=== PATIENT | female | born 1975 | race African-American/Black ===

== ENCOUNTER 2023-03-24 10:15 | Emergency (ER) | payer OTHER ==
[2023-03-24 10:27] VITALS: BMI 33.4
[2023-03-24] MEDS ORDERED: ACETAMINOPHEN 500 MG TABLET (FP) PO ONE (11:00)
[2023-03-24] MEDS ORDERED: ACETAMINOPHEN 500 MG TABLET (FP) ONE (11:29)
[2023-03-24 11:36] LABS: EOS % 1.6 % (0-4.5); HEMATOCRIT 41.4 % (32.4-45.2); HEMOGLOBIN 13.8 GM/dL (10.7-15.3); LYMPH % 24.6 % (8-40); MCH 25.1 pg (25.7-33.7); MCHC 33.4 g/dl (32.0-36.0); MEAN CELL VOLUME 75.2 fl (80-96); MEAN PLT VOLUME 6.8 fl (7.5-11.1); MONO % 7.2 % (3.8-10.2); NEUT % 65.6 % (42.8-82.8); PLATELET COUNT 226 10^3/uL (134-434); RDW 12.7 % (11.6-15.6); WHITE BLOOD COUNT 10.6 K/mm3 (4.0-10.0)
[2023-03-24 11:57] LABS: POTASSIUM 4.2 mmol/L (3.5-5.1)
[2023-03-24 12:01] LABS: ALBUMIN 3.1 g/dl (3.4-5.0); BLOOD UREA NITROGEN 10.8 mg/dL (7-18); CALCIUM 9.6 mg/dL (8.5-10.1)
[2023-03-24 12:04] LABS: CREATININE 0.7 mg/dL (0.55-1.3)
[2023-03-24 12:06] LABS: BILIRUBIN,TOTAL 0.6 mg/dL (0.2-1); TOT PROT 6.4 g/dl (6.4-8.2)
[2023-03-24] MEDS ORDERED: LIDOCAINE HCL 2% (50ML VIAL) SQ ONE (12:57)
[2023-03-24] MEDS ORDERED: LIDOCAINE HCL 2% (20ML MULTI-DOSE VIAL) ONE (13:05)
[2023-03-24 14:54] VITALS: BP 157/88; PULSE 88; RESP 19; TEMP 98.6
== END 2023-03-24 14:54 | disposition home or self-care (01) ==
LOC: JER 10:15
PROC: 0H98XZZ Drainage of Buttock Skin, External Approach (ICD-10-PCS; principal; 2023-03-24)
DX: M79.651 Pain in right thigh (principal); R22.41 Localized swelling, mass and lump, right lower limb; L02.31 Cutaneous abscess of buttock; L03.317 Cellulitis of buttock
CPT/HCPCS: 36415; 80053; 85025; 87070; 87076; 87186; 87205; 99283-25